=== PATIENT | male | born 1995 | race Caucasian/White ===

== ENCOUNTER → 2020-12-25 14:20 | Outpatient (CLI) | payer OTHER, SELFPAY ==
--- NOTE | ~2020-12-25 | US_ITS ---
EXAMINATION: US scrotum doppler EXAM DATE: 12/25/2020 14:43 INDICATION: Pain in left testicle. TECHNIQUE: Multiple grayscale and Doppler images of the testicles and scrotum were obtained bilateral ly. Comparison is made to prior examination from 10/12/2017. FINDINGS: Right testicle measures 5.2 x 3.0 x 4.0 cm and is morphologically normal. Low resistance Doppler cy w confirmed. The epididymis is unremarkable. Moderate size varicocele, trace hydrocele. Left testicle measures 4.9 x 2.7 x 3.3 cm and is morphologically normal. Low resistance Doppler flow confirmed. The epididymis is unremarkable. Moderate size varicocele, trace hydrocele. IMPRESSION: Moderate-sized bilateral varicoceles, increased in size compared to 2018. Reviewed, dictated and finalized at location A.
== END ==
PROVIDERS: Visit Provider Urology
DX: N50.812 Left testicular pain (principal); I86.1 Scrotal varices
CPT/HCPCS: 76870; 93976

== ENCOUNTER 2021-02-20 00:53 | Day surgery (SDC) | payer OTHER, SELFPAY ==
[2021-02-11 16:50] VITALS: BMI 25.8
[2021-02-20] VITALS (8 sets, daily range): BP systolic 105–131; BP diastolic 50–85; PULSE 60–78; RESP 9–16; TEMP 36.3–36.4; O2SAT 99–100
--- NOTE | 2021-02-20 08:24 | P.PNAN_ITS ---
Anes - Initial Pre Proc Eval Procedure: Operation Date: 02/20/21 13:30 Proposed Procedures p Left Varicocele Ligation - Cass Sanders MD Date/Time: 02/20/21 08:24 Surgeon: Cass Sanders MD Pre Op Diagnosis: scrotal varices Patient Data Age: 25 Gender: M Height: 1.7 m Weight: 74.84 kg Allergies Allergy/AdvReac Type Severity Reaction Status Date / Time isotretinoin Allergy Intermediate WIPED OUT Verified 02/20/21 12:25 WHITE BLOOD CELLS Home Medications Medication Instructions Recorded Confirmed Type albuterol 90 mcg INHALATION PRN PRN 02/11/21 02/11/21 History ibuprofen 400 mg PO Q6H PRN 02/11/21 02/11/21 History Patient hx anesthesia problems: none Family hx anesthesia problems: none [facility] Past Medical History Medical History (Updated 02/19/21 @ 12:46 by Elmer Delgadillo DO) Asthma Surgical History Surgical History (Updated 02/19/21 @ 12:46 by Elmer Delgadillo DO) History of tonsillectomy [place] teeth extracted Family History Family History Father Malignant neoplasm of prostate Social History Social History Smoking status: Former smoker Tobacco type: cigarettes Second hand tobacco smoke exposure: No Additional smoking assessment comments: very seldomly smoked in undergrad Alcohol intake: current Drinks per week: 4 Alcohol use details: socially Substance use: never Substance use type: does not use Living arrangements: with roommate(s) Spiritual care concerns: No Anes - Eval Final PreProcedure Day of Procedure 02/20/21 08:24 Patient weight: overweight Heart: regular rate and rhythm Lungs: clear to auscultation and normal air movement Airway: Mallampati scale class II Neurological: alert and oriented Last oral intake: >/= 8 hours ASA classification: II Emergent: no Anesthetic plan: proceed Anesthesia type and monitoring: general LMA and standard monitoring Informed Consent: The patient's anesthetic plan and its attendant risks and benefits were discussed with the patient/family/POA. Questions were solicited and answers provided to the satisfaction of the patient/family/POA.
[2021-02-20] MEDS: LACTATED RINGERS 1,000 ML 30 ML IV CONT ×2 (12:03→16:16)
[2021-02-20] MEDS: ACETAMINOPHEN 500 MG TABLET 1000 MG PO (12:04)
--- NOTE | 2021-02-20 12:27 | WPDHPUPDATE1 ---
History and Physical Update Update Date/Time: 02/20/21 12:27 History and Physical has been reviewed, including an updated exam of the patient. There are NO changes in the patient's condition. Risks, benefits, and alternatives have been discussed and questions answered. Patient agrees to proceed with procedure.
--- NOTE | 2021-02-20 12:28 | WPDHPUPDATE1 ---
History and Physical Update Update Date/Time: 02/20/21 12:28 History and Physical has been reviewed, including an updated exam of the patient. There are NO changes in the patient's condition. Risks, benefits, and alternatives have been discussed and questions answered. Patient agrees to proceed with procedure.
[2021-02-20] MEDS: ceFAZolin 2 GM/D5W 50 ML 2 GM/50 ML BAG IVPB (15:07)
[2021-02-20] MEDS: BUPIVACAINE HCL 0.5% PF 30 ML VIAL INFILTRATE (15:46)
[2021-02-20] MEDS: LIDOCAINE HCL 2% PF INJ 5 ML VIAL 20 ML INFILTRATE (16:04)
--- NOTE | 2021-02-20 16:20 | SUR.PHASEI ---
1618-EDGE OF GLUE STUCK TO SCROTAL SUPPORT, DR. BRUNO IN PACU, SUMMONED TO CARTSIDE AND DETACHED IT AND SCROTAL SUPPORT EDGE CLEARED FROM GLUE AREA.
--- NOTE | 2021-02-20 16:23 | W.PM.PROC2 ---
Procedure Note - Detailed Date of Procedure 02/20/21 Pre-op Diagnosis scrotal varices Post-op Diagnosis same Procedure Performed left microsurgical varicocele ligation Surgeon Cass Sanders MD Anesthesia general Description of Procedure informed consent was obtained. Patient was taken the operating room. He was given preoperative IV antibiotics. He was induced with anesthesia. he was prepped and draped in the normal sterile fashion. We made a 2.5 cm incision over the left external ring. We identified the spermatic cord and was encircled with a drain. We then delivered the testicle through the incision an inspection of the testicle revealed to be normal without mass or lesion. We then cauterized the gubernacular vessels. The testicle was then returned to its orthotopic position. we then placed the spermatic cord on a operating platform and used the operating microscope in order to performed careful dissection. We identified 8 and 9 varicocele veins that were each doubly ligated with titanium clips or 4 0 silk ties. We identified 3 testicular arteries that were preserved throughout the operation. We identified the vas deferens and surrounding vasculature and these were not injured. We carefully inspected and there were no significant residual veins. We then returned the cord to the orthotopic position. We irrigated copiously. We then closed the Ramon's and deep dermal layer was 3 0 Vicryl suture. We closed the skin with 4 0 Monocryl subcuticular closure. Glue was placed and a scrotal support was placed patient was awakened taken recovery stable condition Estimated Blood Loss 2 Drains No Packing No Pathology none sent Complications No immediate complications Condition stable Disposition PACU
== END 2021-02-20 17:50 | disposition home or self-care (01) ==
PROVIDERS: Visit Provider Urology
PROC: (CPT 55530; principal; 2021-02-20 13:30)
DX: I86.1 Scrotal varices (principal); J45.909 Unspecified asthma, uncomplicated; Z79.51 Long term (current) use of inhaled steroids; Z87.891 Personal history of nicotine dependence
CPT/HCPCS: 55530; A9270; C1713; J0690; J1100; J2250; J2405; J2704; J3010; J7120